=== PATIENT | male | born 1965 | race Hispanic/Latino ===

== ENCOUNTER 2020-09-07 14:54 | Emergency (ER) | payer OTHER ==
[~2020-09-07] VITALS: Ht 172.7 cm; Wt 79.4 kg
[~2020-09-07 14:54] MED LIST: AMOX-429 PO; ASPI-1012 PO; CLOP75TA14 PO; LISI2.5T2 PO; METF-445 PO; METO25 PO; SIMV40TA59 PO
[2020-09-07 15:30] VITALS: BP 122/73
[2020-09-07] MEDS ORDERED: ONDANSETRON 4MG INJ IVP ONE (15:30)
[2020-09-07] MEDS ORDERED: MORPHINE 4 MG SYG IVP ONE (15:30)
[2020-09-07 15:38] LABS: BASOPHILS % (AUTO) 0.5 % (0.0-5.0); EOSINOPHILS % (AUTO) 0.1 % (0.0-8.0); HEMATOCRIT 43.8 % (42-54); LYMPHOCYTES % (AUTO) 10.2 % (21.0-51.0); MEAN CORPUSCULAR HEMOGLOBIN 30.8 pg (27.0-33.0); MEAN CORPUSCULAR HGB CONC 33.6 g/dL (32.0-36.0); MEAN CORPUSCULAR VOLUME 91.8 fL (79-99); NEUTROPHILS % (AUTO) 80.8 % (40.0-77.0); PLATELET COUNT (AUTO) 163 K/uL (130-400); RED BLOOD CELL COUNT(AUTO) 4.77 MIL/uL (4.50-6.20); RED CELL DISTRIBUTION WIDTH 12.4 % (11.0-15.5); WHITE BLOOD COUNT (AUTO) 12.3 K/uL (4.8-10.8)
[2020-09-07 15:48] LABS: POTASSIUM 3.8 mmol/L (3.5-5.1)
[2020-09-07 15:53] LABS: ALBUMIN 3.4 g/dL (3.5-5.0); BILIRUBIN,TOTAL 0.8 mg/dL (0.2-1.0); TOTAL PROTEIN, SERUM 7.1 g/dL (6.0-8.3)
[2020-09-07 16:30] VITALS: BP 120/69
[2020-09-07 18:00] VITALS: BP 126/70
[2020-09-07] MEDS ORDERED: IBUP-2077 PO (18:09)
[2020-09-07] MEDS ORDERED: TYL4 PO (18:09)
[2020-09-07] MEDS ORDERED: MORPHINE 4 MG SYG IV ONE (18:15)
== END 2020-09-07 18:39 | disposition home or self-care (01) ==
LOC: EDH 14:54
DX: S92.245A Nondisplaced fracture of medial cuneiform of left foot, initial encounter for closed fracture (principal); R50.9 Fever, unspecified; R07.89 Other chest pain; R06.02 Shortness of breath; I25.2 Old myocardial infarction; E11.9 Type 2 diabetes mellitus without complications; Z98.890 Other specified postprocedural states; Z91.041 Radiographic dye allergy status; Z79.84 Long term (current) use of oral hypoglycemic drugs; Z79.82 Long term (current) use of aspirin; Z79.899 Other long term (current) drug therapy; W20.8XXA Other cause of strike by thrown, projected or falling object, initial encounter; Y93.89 Activity, other specified; Y92.89 Other specified places as the place of occurrence of the external cause; Y99.8 Other external cause status
CPT/HCPCS: 36415; 73610; 73630; 73700; 80053; 85025; 96374; 96375; 96376; 99285; J2270 ×2; J2405